=== PATIENT | male | born 1950 | race Caucasian/White ===

== ENCOUNTER 2016-05-23 10:41 | Emergency (ER) | payer OTHER ==
--- NOTE | 2016-05-23 11:08 | PROVIDER DOCUMENTATION ---
HPI-General Adult - General Chief Complaint: Sores/Lesions Stated Complaint: FOOT INFECTION/PT DIABETIC Time Seen by Provider: 05/23/16 10:47 Source: patient Allergies/Adverse Reactions: Patient Allergies Allergy/AdvReac Type Severity Reaction Status Date / Time No Known Allergies Allergy Verified 05/23/16 11:03 Home Medications: Home Medication List Medication Instructions Recorded Confirmed Last Taken Type Aspirin EC 81 mg PO DAILY 11/02/14 05/23/16 Unknown History Atorvastatin Calcium [Lipitor] 40 mg PO DAILY 11/02/14 05/23/16 Unknown History Cyclobenzaprine [Flexeril] 10 mg PO TID #20 tablet 11/02/14 05/23/16 Unknown Rx ENALApril [Vasotec] 15 mg PO DAILY 11/02/14 05/23/16 Unknown History Ergocalciferol (Vitamin D2) 50,000 unit PO DAILY 11/02/14 05/23/16 Unknown History [Vitamin D2] Folic Acid 1 mg PO DAILY 11/02/14 05/23/16 Unknown History Gabapentin [Neurontin] 300 mg PO 5XDAY 11/02/14 05/23/16 Unknown History Insulin Glargine [Lantus] 40 unit SUBQ BID 11/02/14 05/23/16 Unknown History Methadone 10 mg PO DIRECTED 11/02/14 05/23/16 Unknown History Naproxen 500 mg PO BID #30 tablet. 11/02/14 05/23/16 Unknown Rx Topiramate [Topamax] 100 mg PO DAILY 11/02/14 05/23/16 Unknown History - History of Present Illness -Gen Adult Nature of Presenting Problems: patient is a 66 y/o M that presents with diabetic foot ulcer to left great toe. patient had similar symptoms previously and treated with antibiotics. patient denies any fever/chills. Location of Pain/Injury: reports: lower extremity (left foot) Pain Radiation: reports: no radiation Quality of Pain: reports: dull Severity: reports: mild, moderate Onset/Duration: reports: unsure Timing: reports: still present, constant Context/Activities at Onset: reports: none Modifying Factors: improves with: nothing Associated Symptoms: denies: chest pain, fever/chills, nausea, shortness of breath, vomiting Similar Symptoms Previously?: Yes Recently seen or treated by another doctor?: No Review of Systems - Adult - REVIEW OF SYSTEMS - ADULT Constitutional: denies: chills, fever Eyes: reports: no symptoms reported Ears, Nose, Mouth & Throat: reports: no symptoms reported Cardiovascular: denies: chest pain, orthopnea, palpitations, syncope Respiratory: denies: cough, pleurisy, shortness of breath, wheezing Gastrointestinal: denies: abdominal pain, diarrhea, difficulty swallowing, nausea, poor appetite, vomiting Genitourinary: reports: no symptoms reported Musculoskeletal: reports: bone pain. denies: joint pain Integumentary: reports: skin sores/ulcer. denies: itching, rash Neurological: reports: no symptoms reported Psychiatric: reports: no symptoms reported Endocrine: reports: no symptoms reported Hematologic/Lymphatic: reports: no symptoms reported Allergic/Immunologic: reports: no symptoms reported All Other Systems: Reviewed and Negative Past History - Adult - PAST MEDICAL HISTORY-ADULT Review of Records: reports: Old Records Reviewed, Nursing Assessment Review, Medications Reviewed Cardiovascular: reports: HTN Musculoskeletal: reports: chronic pain, intervertebral disc disease, neck/back injury Endocrine/Immune: reports: Diabetes - PRIOR SURGERIES/PROCEDURES Surgical/Procedure History: reports: hernia repair - SOCIAL HISTORY Smoking: cigarettes, less than 1 pack/day Living Situation: family Physical Exam-General - PHYSICAL EXAM-ADULT Initial Vital Signs Reviewed: Yes - CONSTITUTIONAL General Appearance: alert, no apparent distress - EYES Eyes: PERRL/EOMI, pink conjunctivae - HEAD, EARS, NOSE, MOUTH & THROAT HENMT: normocephalic/atraumatic, moist mucous membranes, normal ENT inspection - NECK Neck: full range of motion, normal inspection - RESPIRATORY Respiratory: lungs clear, normal breath sounds, no respiratory distress, no accessory muscle use - CARDIOVASCULAR Cardiovascular: regular rate, rhythm, no murmur - GASTROINTESTINAL (ABDOMEN) Abdominal Exam: normal bowel sounds, non tender, soft - MUSCULOSKELETAL Extremity: normal range of motion, no calf tenderness, normal capillary refill - SKIN Integumentary: warm/dry, other (diabetic ulcer to left great toe, dried, no oozing) - NEUROLOGIC Neurologic: grossly normal, no motor/sensory deficits - PSYCHIATRIC Psych/Mental Status: normal mood/affect, normal thought content, normal thought process, oriented x 3 Progress - PLAN OF CARE/RESULTS Progress/Plan/Lab Results: Vital Signs Temp Pulse Resp BP Pulse Ox 05/23/16 10:47 97.2 F L 87 18 189/108 97 No Known Allergies Allergy (Verified 05/23/16 11:03) Aspirin EC 81 mg PO DAILY 11/02/14 Atorvastatin Calcium [Lipitor] 40 mg PO DAILY 11/02/14 Cyclobenzaprine [Flexeril] 10 mg PO TID #20 tablet 11/02/14 ENALApril [Vasotec] 15 mg PO DAILY 11/02/14 Ergocalciferol (Vitamin D2) [Vitamin D2] 50,000 unit PO DAILY 11/02/14 Folic Acid 1 mg PO DAILY 11/02/14 Gabapentin [Neurontin] 300 mg PO 5XDAY 11/02/14 Insulin Glargine [Lantus] 40 unit SUBQ BID 11/02/14 Methadone 10 mg PO DIRECTED 11/02/14 Naproxen 500 mg PO BID #30 tablet. 11/02/14 Topiramate [Topamax] 100 mg PO DAILY 11/02/14 Doxycycline 100 mg PO BID #20 capsule 05/23/16 Mupirocin Ointment [Bactroban Ointment] 1 applicatn TOP TID #1 tube 05/23/16 Sulfamethoxazole/Trimethoprim [Bactrim Ds Tablet] 1 each PO BID #20 tablet 05/23 Laboratory 05/23/16 11:14 POC Glucose 194 H Orders Category Date Time Status Wound Care DIRECTED Care 05/23/16 11:11 Active TOE(S)-LEFT [RAD] Stat Exams 05/23/16 11:10 Taken CefTRIAXONE [Rocephin] Med 05/23/16 11:10 Discontinued 1 gm IM NOW ONE Lidocaine 1% Pf [Xylocaine-Mpf 1%] Med 05/23/16 11:10 Discontinued 5 ml INJ NOW ONE pt will be d/c home f/u with wound care clinic, pt was clinically stable, understood instructions and results - XRAY 1 XRAY Study: Facial Bones, Foot Impression: Normal XRAY Interpretation: no signs of osteo, no fx Departure - Departure Time of Disposition Order: 11:53 DIAGNOSIS: Diabetic foot ulcer Qualifiers: Diabetic foot ulcer location: toe Diabetes mellitus type: type 2 Laterality: left Non-pressure ulcer stage: with fat layer exposed Qualified Code(s): E11.621 - Type 2 diabetes mellitus with foot ulcer; L97.522 - Non-pressure chronic ulcer of other part of left foot with fat layer exposed Disposition: HOME 01 Certified Medical Emergency: Emergent Condition: Stable Additional Instructions: follow up with wound care clinic ED Follow Up Instructions: You have been treated by a care provider in the Emergency Department. These instructions are being provided to you so you can have an understanding of how to care for yourself upon discharge. Upon discharge from the Emergency Department, you are responsible for making arrangements for follow-up care by a physician of your choice. Take all prescribed medications as directed. Return to the Emergency Department immediately for any new or worsening symptoms. You may call the Physician Referral phone number at [phone] to obtain a list of Physicians who are taking new patients. Referrals: None,PCP [Primary Care Provider] - Son Walsh MD [STAFF PHYSICIAN] - (as needed) Instructions: Diabetes and Foot Care Attestation - Scribe Verification/Attestation Scribe:: Albaro Clark Acting as Scribe for:: Renard Magallon Scribe documention review:: This chart was documented by a scribe and accurately reflects the service the provider performed and the decisions made by the provider. Physician Attestation - Physician Attestation I, the provider, attest to the following statement:: Renard Magallon Physician documentation Attestation:: This documentation recorded by the scribe accurately reflects the service I personally performed and the decisions made by me.
[2016-05-23] MEDS ORDERED: XYLOCAINE-MPF 1% INJ ONE (11:10)
[2016-05-23] MEDS ORDERED: ROCEPHIN IM ONE (11:10)
[2016-05-23 12:17] VITALS: BP 152/89
--- NOTE | 2016-05-23 12:49 | Diag Imaging Result Document ---
PROCEDURE NAME: TOE(S)-LEFT - 05/23/2016 LEFT GREAT TOE, 3 VIEWS: COMPARISON: No comparison exam. FINDINGS: There is soft tissue swelling. There is possible soft tissue ulcer at the plantar aspect of the proximal toe. There are no erosive or destructive changes identified. There is no fracture or dislocation identified. There are mild degenerative changes at the 1st metatarsophalangeal joint. IMPRESSION: No visible acute bony abnormality. No evidence of osteomyelitis. Please note that early osteomyelitis can be radiographically occult.
== END 2016-05-23 12:20 | disposition home or self-care (01) ==
LOC: P.ED 10:41
DX: E11.621 Type 2 diabetes mellitus with foot ulcer (principal); L97.522 Non-pressure chronic ulcer of other part of left foot with fat layer exposed; I10 Essential (primary) hypertension; G89.29 Other chronic pain; F17.210 Nicotine dependence, cigarettes, uncomplicated; Z79.899 Other long term (current) drug therapy; Z79.4 Long term (current) use of insulin; Z79.82 Long term (current) use of aspirin
CPT/HCPCS: 73660; 82948; J0696

== ENCOUNTER 2018-08-31 14:31 | Observation (INO) ==
[2018-08-31] MEDS: NS 1,000 ML IV SCH (15:16)
--- NOTE | 2018-08-31 15:37 | EKG Report ---
Test Performed on : 08/31/2018 2:56:49 PM Test Reason : rhythm evaluation Blood Pressure : / mmHG Vent. Rate : 066 BPM Atrial Rate : 066 BPM P-R Int : 190 ms QRS Dur : 100 ms QT Int : 448 ms P-R-T Axes : 090 000 051 degrees QTc Int : 469 ms Normal sinus rhythm. Normal ECG When compared with ECG of 18-MAY-2018 10:38, No significant change was found Confirmed by Emilio CHAVIRA, Benedicto Louise ([id number]) on 08/31/2018 5:06:46 PM
[2018-08-31 16:40] LABS: HEMOGLOBIN 10.2 g/dL (14.0-18.0); MCH 26.4 PG (27-31); MCHC 30.9 g/dL (33-37); MCV 85.3 FL (81-99); MPV 10.5 FL (7.4-10.4); RBC 3.87 XMIL (4.7-6.1); RDW 16.8 % (11.5-14.5); WBC 9.33 X1000 (4.8-10.8)
[2018-08-31 16:55] LABS: INR 1.04; PROTIME 14.4 Seconds (11.0-16.0)
[2018-08-31 16:56] LABS: CALCIUM 8.6 mg/dL (8.8-10.2); CREATININE 2.3 mg/dL (0.7-1.2); POTASSIUM 4.7 mmol/L (3.5-5.1)
[2018-08-31] MEDS: COREG PO SCH (20:01)
[2018-08-31] MEDS ORDERED: LIPITOR PO SCH (21:00)
[2018-08-31] MEDS ORDERED: NEURONTIN PO SCH (21:00)
--- NOTE | 2018-08-31 22:33 | HISTORY AND PHYSICAL ---
IMPRESSION: 1. Cardiomyopathy, possibly ischemic in origin in the setting of multiple risk factors for coronary atherosclerosis. 2. Exertional shortness of breath and orthopnea possibly anginal equivalents. 3. Chronic systolic heart failure. 4. Diabetes mellitus, long standing. 5. Hypertension. 6. Hyperlipidemia. 7. Chronic kidney disease. 8. Pneumonia with associated pleural effusion February 2018. 9. Chronic obstructive pulmonary disease. PLAN: 1. Telemetry admission. 2. Intravenous hydration in preparation for coronary angiography. 3. Left heart catheterization with coronary angiography with efforts to minimize contrast dye load in light of patient's renal dysfunction. This is being pursued for definitive evaluation of patient's symptoms and cardiomyopathy in setting of multiple risk factors for coronary disease. The rationale for this approach has been explained to the patient and potential hazards discussed. He wishes to proceed. HISTORY: This 68-year-old white male with past history of longstanding diabetes mellitus, hypertension and hyperlipidemia is now admitted for observation and intravenous hydration prior to coronary angiography to further evaluate cardiomyopathy. He has had exertional shortness of breath but no chest discomfort. He was found to have some evidence of congestive heart failure and left ventricular ejection fraction was mildly reduced at 45%. Despite diuresis he has continued with some tendency for exertional shortness of breath and tendency for shortness of breath when lying down. He has also had some exertional fatigue. He has history of previous cigarette use. In light of the multitude of coronary risk factors and persistent symptoms, it was felt needed to pursue definitive evaluation of his cardiomyopathy with coronary angiography. Previous stress myocardial perfusion study had been performed and previous Lexiscan sestamibi study was abnormal demonstrating moderate to severe fixed defect in the basal to mid inferior wall. Previous inferior infarction could not be excluded. Left ventricular ejection fraction is approximately 45%. PAST MEDICAL HISTORY: 1. Cardiomyopathy possibly ischemic in origin. 2. Chronic congestive heart failure. 3. Longstanding type 2 diabetes mellitus. 4. Hypertension. 5. Chronic obstructive pulmonary disease. 6. History of previous pneumonia associated pleural effusion February 2018. 7. Hyperlipidemia. 8. Chronic kidney disease. PAST SURGICAL HISTORY: Includes hernia repair, unspecified surgery on digit on one of his hands, unspecified lung surgery, and unspecified hip surgery. ALLERGIES: He has no known drug allergies. MEDICATIONS PRIOR TO ADMISSION: As listed. SOCIAL HISTORY: He has history of previous cigarette use in the past. He is retired. FAMILY HISTORY: Positive for coronary disease. REVIEW OF SYSTEMS: Pulmonary: Noteworthy for exertional shortness of breath as well as some orthopnea. Gastrointestinal: Noncontributory. Constitutional: Noncontributory. Remainder of review of systems negative/noncontributory with 14 total systems reviewed. PHYSICAL EXAMINATION: GENERAL: Reveals an older white male in no distress. VITAL SIGNS: Blood pressure 131/69, heart rate 66, oxygen saturation 98% on room air, weight 216 pounds. HEENT: Extraocular movements appear intact. Mucous membranes moist. NECK: Supple. No jugular venous distention. There are no carotid bruits. CHEST: Clear to auscultation. CARDIAC EXAM: Reveals a regular rate and rhythm without appreciable murmur or gallop. ABDOMEN: Soft. Bowel sounds normal. EXTREMITIES: Without edema. NEUROLOGIC EXAM: Reveals him to be alert and fully oriented. Speech is fluent. Moves all 4 extremities equally well. SKIN: Warm and dry. PSYCHIATRIC: Mood to be appropriate. EKG: Twelve lead EKG demonstrates normal sinus rhythm and nondiagnostic inferior Q-waves. LABORATORY DATA: Includes a white blood cell count of 9.33, hematocrit 33.0, hemoglobin 10.2, platelet count 173,000, protime 14.4, INR 1.04. Sodium 138, potassium 4.7, chloride 100, carbon dioxide 26, BUN 37, creatinine 2.3, glucose 201, calcium 8.6. cc: Zack Schaeffer MD
[2018-09-01] MEDS: NS 1,000 ML IV SCH ×2 (05:04→15:40)
[2018-09-01 05:21] LABS: BASO# 0.06 X1000 (0.0-0.2); BASO% 0.6 % (0.0-0.8); EOS# 0.36 X1000 (0.0-0.7); EOS% 3.5 % (0.0-10.0); HEMATOCRIT 30.6 % (42.0-52.0); HEMOGLOBIN 9.5 g/dL (14.0-18.0); IMM GRAN# 0.02 X1000 (0.0-0.04); IMM GRAN% 0.2 % (0.0-0.5); LYMPH# 3.69 X1000 (1.2-3.4); LYMPH% 35.9 % (20.5-51.1); MCH 26.3 PG (27-31); MCV 84.8 FL (81-99); MONO% 4.9 % (1.7-9.3); MPV 10.5 FL (7.4-10.4); NEUT# 5.64 X1000 (1.4-6.5); NEUT% 54.9 % (42.2-75.2); PLT 156 X1000 (130-400); RBC 3.61 XMIL (4.7-6.1); RDW 16.9 % (11.5-14.5); WBC 10.27 X1000 (4.8-10.8)
[2018-09-01 05:49] LABS: CALCIUM 8.9 mg/dL (8.8-10.2); CREATININE 2.1 mg/dL (0.7-1.2); POTASSIUM 4.1 mmol/L (3.5-5.1)
--- NOTE | 2018-09-01 06:53 | Diag Imaging Result Doc PS360 ---
CHEST-PORTABLE - 09/01/2018 INDICATION: heart cath COMPARISON: 05/18/2018 FINDINGS: Stable small, faint area of chronic atelectasis or scarring in the right midlung. Otherwise, no focal infiltrates. Heart size and pulmonary vascularity is normal. No pneumothorax or significant pleural effusion. IMPRESSION: Stable faint chronic atelectasis or scarring in the right midlung. Electronically signed by Cezar Abdi 09/01/2018 6:51 AM
[2018-09-01] MEDS ORDERED: HEPARIN 1000 UNITS/NS 2,000 UNIT/1,000 ML IV.SOLN ONE (08:25)
[2018-09-01] MEDS ORDERED: VERSED ONE (08:25)
[2018-09-01] MEDS ORDERED: MORPHINE ONE (08:25)
[2018-09-01] MEDS: COREG PO SCH (08:29)
[2018-09-01] MEDS ORDERED: PLAVIX PO SCH (09:00)
[2018-09-01] MEDS ORDERED: LASIX PO SCH (09:00)
[2018-09-01] MEDS ORDERED: NORVASC PO SCH (09:00)
[2018-09-01 15:50] VITALS: BP 148/70
--- NOTE | 2018-09-01 18:49 | PROGRESS NOTE ---
DATE: 09/01/2018 SUBJECTIVE: Patient continues without chest discomfort or shortness of breath on room air. He had coronary angiography earlier today which demonstrated mild to moderate branch vessel coronary atherosclerosis, appropriate for medical management. OBJECTIVE: Vital Signs: Blood pressure 148/70, heart rate 55, oxygen saturation 97% on room air. Chest: Clear to auscultation bilaterally. Cardiac: Regular rate and rhythm without appreciable murmur, rub, or gallop. Abdomen: Right groin demonstrates no evidence of hematoma. Extremities: Without edema. IMPRESSION: 1. Stable status post coronary angiography today. 2. Mild to moderate branch vessel coronary atherosclerosis. 3. Diabetes mellitus. 4. Hypertension. 5. Mild cardiomyopathy. 6. Chronic kidney disease. PLAN: 1. Discharge to home on current regimen. 2. Follow up in approximately 2 weeks. cc: Zack Schaeffer MD
--- NOTE | 2018-09-02 08:50 | CARDIAC CATH REPORT ---
PROCEDURE NAME: - PROCEDURE PERFORMED: Left heart catheterization with selective coronary angiography. Left ventriculography not performed to minimize contrast load in setting of significant renal dysfunction. INDICATIONS: For evaluation of cardiomyopathy and abnormal myocardial perfusion study in patient with diabetes mellitus, hypertension, and previous cigarette use. ENTRY SITE: Right femoral artery. CATHETERS USED: 5-Vietnamese JL4 and 3DRC. TECHNIQUE: After intravenous sedation with morphine and Versed, local anesthesia with lidocaine was applied over right femoral artery. Arterial access was established with placement of a 5- Vietnamese sheath in right femoral artery using modified Seldinger technique. Selective coronary angiography was performed. Following this, left heart catheterization was performed. Left ventriculography was not performed to minimize contrast load. Upon completion of procedure, arterial sheath was removed from right femoral artery and hemostasis facilitated with manual pressure. The patient tolerated the procedure without apparent complications. FINDINGS: Hemodynamics: Aortic pressure 151/83 with a mean of 103. Left ventricular pressure 175/80, [*] 16. COMMENTS: With hemodynamics, there is no significant gradient across aortic valve demonstrated on pullback of the left ventricle. ANGIOGRAPHY: 1. Left ventriculogram not performed. 2. Left main coronary artery: Left main coronary artery is free of significant coronary stenosis. 3. Left anterior descending coronary: Left anterior descending coronary gives rise to a very small first diagonal branch proximally and immediately thereafter gives rise to a medium sized second diagonal branch. The first diagonal branch demonstrates diffuse coronary atherosclerosis. The medium second diagonal branch demonstrates a moderate to severe (70% to 80%) focal stenosis proximally. The distal left anterior descending coronary before the apex demonstrates a moderate 60% to 70% focal stenosis. 4. Left circumflex coronary artery: The left circumflex coronary gives rise to a small first diagonal branch proximally and a medium to large second diagonal branch midway down the AV groove. The distal left circumflex artery continues as a small posterior lateral branch. The small first obtuse marginal demonstrates diffuse atherosclerosis. The left circumflex coronary artery demonstrates a mild to moderate (40%) focal stenosis prior to the origin of the second obtuse marginal. 5. Right coronary artery: The right coronary artery is dominant. There are mild irregularities in the right coronary artery. The posterior descending artery demonstrates moderate proximal atherosclerotic narrowing. CONCLUSIONS: Right-dominant coronary anatomy with mild to moderate branch vessel coronary atherosclerosis. RECOMMENDATIONS: Recommend continued medical management of coronary atherosclerosis and coronary risk factor modification. cc: Zack Schaeffer MD
== END 2018-09-01 18:40 | disposition home or self-care (01) ==
LOC: DIRADM → 3S 14:31
PROVIDERS: ADMIT Internal Medicine Cardiovascular Disease; ATTEND Internal Medicine Cardiovascular Disease
CPT/HCPCS: 71010; 71045; 80048; 83735; 85025; 85027; 85610; 93005; 93010; 93458; A9270; J1644; J2250; J2270; J7030; Q9967